=== PATIENT | male | born 2000 | race African-American/Black ===

== ENCOUNTER 2022-08-12 14:35 | Emergency (ER) | payer OTHER ==
[2022-08-12 14:40] VITALS: BP 129/76; PULSE 72; RESP 16; TEMP 98.1
--- NOTE | 2022-08-12 15:03 | ED ---
Wound/Laceration HPI - General Chief Complaint: Wound/Laceration Stated Complaint: thumb injury Time Seen by Provider: 08/12/22 14:39 Source: patient, RN notes reviewed Mode of arrival: ambulatory Limitations: no limitations - History of Present Illness Initial Comments: Patient is a 22-year-old -Turkish male presenting to the emergency room after accidentally cutting his hand on a wine bottle earlier today when he was attempting to open the bottle with a knife. He denies any range of motion impairment, numbness or tingling. He denies any concerns for foreign objects or injuries to other locations. He reports that his tetanus vaccination is up-to-date. He denies any significant past medical history and does not take any medications on a regular basis. - Related Data Allergies Allergy/AdvReac Type Severity Reaction Status Date / Time No Known Allergies Allergy Verified 08/12/22 14:37 Review of Systems ROS Statement: Those systems with pertinent positive or pertinent negative responses have been documented in the HPI. ROS Other: All systems not noted in ROS Statement are negative. Past Medical History Past Medical History: No Reported History History of Any Multi-Drug Resistant Organisms: None Reported Past Surgical History: No Surgical Hx Reported Past Psychological History: No Psychological Hx Reported Smoking Status: Never smoker Past Alcohol Use History: Occasional Past Drug Use History: None Reported General Exam Limitations: no limitations General appearance: alert, in no apparent distress Head exam: Present: atraumatic, normocephalic, normal inspection Eye exam: Present: normal appearance, PERRL, EOMI. Absent: scleral icterus, conjunctival injection, periorbital swelling ENT exam: Present: normal exam, mucous membranes moist Neck exam: Present: normal inspection, full ROM (GENERAL: []) Respiratory exam: Absent: respiratory distress, accessory muscle use Cardiovascular Exam: Present: regular rate GI/Abdominal exam: Absent: distended Right Hand Wrist exam: Present: full ROM, tenderness, laceration (between index finger and thumb dorsal aspect). Absent: swelling, deformity, crepitus, dislocation, nail avulsion Vascular: Present: normal capillary refill. Absent: vascular compromise Back exam: Present: normal inspection, full ROM Neurological exam: Present: alert, oriented X3, CN II-XII intact Psychiatric exam: Present: normal affect, normal mood Skin exam: Present: other (laceration as above) Course Vital Signs 08/12/22 14:38 Temperature 98.1 F Pulse Rate 72 Respiratory 16 Rate Blood Pressure 129/76 O2 Sat by Pulse 96 Oximetry Procedures - Laceration Laceration #1 Consent Obtained: verbal consent Indication: laceration Site: hand (right between webbing of thumb and index finger) Size (cm): 1 Description: linear Depth: simple, single layer Anesthetic Used: lidocaine 1% Anesthesia Technique: local infiltration Pre-repair: wound explored, irrigated extensively Type of Sutures: nylon Size of Sutures: 4-0 Number of Sutures: 3 Technique: simple, interrupted Patient Tolerated Procedure: well, no complications Medical Decision Making - Medical Decision Making 22-year-old -Turkish presenting with laceration to right hand. No range of motion impairment or bone injury. No concern for foreign body. No indication for diagnostic imaging or laboratory studies. No indication for antibiotic therapy or vaccinations as vaccinations up-to-date. Will proceed with laceration closure via sutures. Patient tolerated suture closure of laceration well without complications. Wound care discussed along with monitoring for signs and symptoms of infection. Questions and concerns answered. Will discharge home in stable condition with follow-up for suture removal in 7-10 days. Case discussed with Dr. Heard. Disposition Clinical Impression: Laceration Disposition: HOME SELF-CARE Condition: Stable Instructions (If sedation given, give patient instructions): Care For Your Stitches (ED), Laceration (ED) Additional Instructions: Please keep wound clean and dry. Monitor for signs and symptoms of infection and seek medical attention as appropriate if symptoms occur. Please return to the emergency room for suture removal in 7-10 days or follow-up with your primary care provider. Please return to the Emergency Department if symptoms worsen or any other concerns. Is patient prescribed a controlled substance at d/c from ED?: No Referrals: None,Stated [Primary Care Provider] - 1-2 days Time of Disposition: 15:04
[2022-08-12] MEDS ORDERED: LIDOCAINE 1% INJ 10MG/ML (30 ML VIAL-PF) SQ STA (16:01)
== END 2022-08-12 15:20 | disposition home or self-care (01) ==
LOC: EC 14:35
DX: S61.210A Laceration without foreign body of right index finger without damage to nail, initial encounter (principal); S61.011A Laceration without foreign body of right thumb without damage to nail, initial encounter; W25.XXXA Contact with sharp glass, initial encounter
CPT/HCPCS: 99282; 12001; J2001

== ENCOUNTER 2022-09-14 18:37 | Emergency (ER) | payer OTHER ==
[2022-09-14 18:59] VITALS: RESP 16; TEMP 97
[2022-09-14] MEDS ORDERED: MAG HYDROX/AL HYDROX/SIMETH 30 ML, HYOSCYAMINE ELIXIR 10 ML, LIDOCAINE VISCOUS 2% 10 ML PO STA ×3 (20:15)
[2022-09-14] MEDS ORDERED: DICYCLOMINE 20 MG TAB PO STA (20:15)
[2022-09-14] MEDS ORDERED: FAMOTIDINE 20 MG TAB PO STA (20:16)
--- NOTE | 2022-09-14 20:21 | ED ---
Abdominal Pain HPI - General Chief Complaint: Abdominal Pain Stated Complaint: Abd Pain,Diarrhea,Indigestion Time Seen by Provider: 09/14/22 20:03 Source: patient, RN notes reviewed, old records reviewed Mode of arrival: ambulatory Limitations: no limitations - History of Present Illness Initial Comments: This is a pleasant black 22-year-old male that presents to the emergency room with complaints of epigastric abdominal pain that is burning in nature for the past several months. Patient also having intermittent diarrhea and constipation. Denies any vomiting. States does not have a primary care doctor. Denies any alcohol, drug or cigarette use. Does not take any medication on a daily basis. Is a nonsmoker. MD Complaint: abdominal pain -: month(s) Location: epigastric Radiation: none Severity scale (1-10): 3 Quality: burning Consistency: intermittent Improves With: nothing Worsens With: nothing Associated Symptoms: diarrhea, constipation - Related Data Previous Rx's Medication Instructions Recorded Dicyclomine [Bentyl] 20 mg PO TID #30 tablet 09/14/22 Famotidine [Pepcid] 20 mg PO BID #28 tablet 09/14/22 Allergies Allergy/AdvReac Type Severity Reaction Status Date / Time Milk Containing Products Allergy Unknown Verified 09/14/22 21:48 [Dairy] Review of Systems ROS Statement: Those systems with pertinent positive or pertinent negative responses have been documented in the HPI. ROS Other: All systems not noted in ROS Statement are negative. Past Medical History Past Medical History: No Reported History History of Any Multi-Drug Resistant Organisms: MRSA Date of last positivie culture/infection: 2013 MDRO Source:: armpit Past Surgical History: No Surgical Hx Reported Additional Past Surgical History / Comment(s): stiches in right hand. Past Psychological History: No Psychological Hx Reported Smoking Status: Never smoker Past Alcohol Use History: None Reported Past Drug Use History: None Reported General Exam Limitations: no limitations General appearance: alert, in no apparent distress Head exam: Present: atraumatic, normocephalic, normal inspection Eye exam: Present: normal appearance. Absent: scleral icterus, conjunctival injection, periorbital swelling, periorbital tenderness ENT exam: Present: mucous membranes moist Respiratory exam: Present: normal lung sounds bilaterally. Absent: respiratory distress, accessory muscle use Cardiovascular Exam: Present: regular rate, normal heart sounds GI/Abdominal exam: Present: soft. Absent: distended, tenderness, rigid Extremities exam: Present: normal capillary refill Back exam: Present: normal inspection, full ROM. Absent: tenderness, CVA tenderness (R), CVA tenderness (L), rash noted Neurological exam: Present: alert, oriented X3 Psychiatric exam: Present: normal affect, normal mood Skin exam: Present: warm, dry, intact, normal color. Absent: rash, cyanosis, diaphoretic, petechiae, pallor Course Vital Signs 09/14/22 09/14/22 09/14/22 18:56 20:59 22:23 Temperature 97 F L Pulse Rate 88 62 78 Respiratory 16 16 16 Rate Blood Pressure 126/82 121/76 110/55 O2 Sat by Pulse 97 98 99 Oximetry Medical Decision Making - Medical Decision Making Abdomen is soft and nontender, no right lower quadrant pain, denies any t esticular pain, no fevers. Labs are unremarkable and x-ray interpreted by me shows stool in the colon, no free air. Radiologist impression large amount of stool in the right colon. Nonspecific bowel gas pattern without radiographic evidence for acute process. Patient was given Pepcid Bentyl and GI cocktail with relief. His symptoms are consistent with IBS as he has had intermittent diarrhea and constipation over the past 3 months His epigastric burning is likely related to gastritis. He was placed on Pepcid and Bentyl and directed to follow up with Dr. Rodriguez. Increase his fluid and fiber intake. He is agreeable to this plan of care. Case discussed with Dr. Narayanan. Was pt. sent in by a medical professional or institution? @ -No Did you speak to anyone other than the patient for history? @ -No Did you review nursing and triage notes? @ -Yes I agree Were old charts reviewed? @ -No Differential Diagnosis? @ -Differential Abdominal Pain Men: Appendicitis, cholecystitis, diverticulosis, ischemic bowel, pancreatitis, hepatitis, UTI, gastroenteritis, bowel obstruction, constipation, inflammatory bowel, hepatitis, peptic ulcer disease, splenic infarction, perforated viscus, testicular torsion, this is not meant to be an all-inclusive list X-rays interpreted by me (1pt min.)? @ -Yes as above CT interpreted by me (1pt min.)? @ - What testing was considered but not performed? (CT, X-rays, U/S, labs)? Why? @ CT was considered however labs are unremarkable. Abdomen is soft. No right lower quadrant pain. Constipation on x-ray with no evidence of free air. Pain was relieved with GI cocktail Pepcid and Bentyl What meds were considered but not given? Why? @ -None Did you discuss the management of the patient with other professionals? @ -No Did you reconcile home meds? @ -None Was smoking cessation discussed for >3mins.? @ -Nonsmoker Was critical care preformed (if so, how long)? @ -No Were there social determinants of health that impacted care today? How? (Homelessness, low income, unemployed, alcoholism, drug addiction, transportation, low edu. Level, literacy, decrease access to med. care, correction, rehab)? @ -Patient does not have a primary care doctor, on Medicaid Was there de-escalation of care discussed even if they declined? (Discuss DNR or withdrawal of care, Hospice)? @ -None What co-morbidities impacted this encounter? (DM, HTN, Smoking, COPD, CAD, Cancer, CVA, Hep., AIDS, mental health diagnosis, sleep apnea, morbid obesity)? @ -None Was patient admitted / discharged? @ -Discharged Undiagnosed new problem with uncertain prognosis? @ -[none] Drug Therapy requiring intensive monitoring for toxicity (Heparin, Nitro, Insulin, Cardizem)? @ -No Were any procedures done? @ -No Diagnosis/symptom? @ -Constipation, gastritis, abdominal pain consistent with IBS Acute, or Chronic, or Acute on Chronic? @ -Acute Uncomplicated (without systemic symptoms) or Complicated (systemic symptoms)? @ -Uncomplicated Side effects of treatment? @ -[none] Exacerbation, Progression, or Severe Exacerbation] @ -[no] Poses a threat to life or bodily function? @ -[no] - Lab Data Result diagrams: 09/14/22 20:41 09/14/22 20:41 Lab Results 09/14/22 09/14/22 Range/Units 20:41 20:41 WBC 6.7 (3.8-10.6) k/uL RBC 5.49 (4.30-5.90) m/uL Hgb 15.7 (13.0-17.5) gm/dL Hct 45.4 (39.0-53.0) % MCV 82.7 (80.0-100.0) fL MCH 28.6 (25.0-35.0) pg MCHC 34.5 (31.0-37.0) g/dL RDW 12.7 (11.5-15.5) % Plt Count 172 (150-450) k/uL MPV 8.2 Neutrophils % 60 % Lymphocytes % 30 % Monocytes % 6 % Eosinophils % 2 % Basophils % 1 % Neutrophils # 4.0 (1.3-7.7) k/uL Lymphocytes # 2.0 (1.0-4.8) k/uL Monocytes # 0.4 (0-1.0) k/uL Eosinophils # 0.1 (0-0.7) k/uL Basophils # 0.1 (0-0.2) k/uL Sodium 138 (137-145) mmol/L Potassium 3.6 (3.5-5.1) mmol/L Chloride 103 (98-107) mmol/L Carbon Dioxide 28 (22-30) mmol/L Anion Gap 7 mmol/L BUN 17 (9-20) mg/dL Creatinine 0.97 (0.66-1.25) mg/dL Est GFR (CKD-EPI)AfAm >90 (>60 ml/min/1.73 sqM) Est GFR (CKD-EPI)NonAf >90 (>60 ml/min/1.73 sqM) Glucose 108 H (74-99) mg/dL Calcium 9.5 (8.4-10.2) mg/dL Total Bilirubin 0.5 (0.2-1.3) mg/dL AST 33 (17-59) U/L ALT 35 (4-49) U/L Alkaline Phosphatase 100 (38-126) U/L Total Protein 7.2 (6.3-8.2) g/dL Albumin 4.8 (3.5-5.0) g/dL Amylase 69 (30-110) U/L Lipase 155 (23-300) U/L Disposition Clinical Impression: Constipation, Gastritis Disposition: HOME SELF-CARE Condition: Good Instructions (If sedation given, give patient instructions): Gastritis (ED), Constipation (ED), High Fiber Diet (ED) Additional Instructions: Increase your fluid and fiber intake. You can try Benefiber daily. Take the Pepcid as prescribed for epigastric burning. Follow-up with Dr. Rodriguez for evaluation of possible irritable bowel syndrome. Prescriptions: Dicyclomine [Bentyl] 20 mg PO TID #30 tablet Famotidine [Pepcid] 20 mg PO BID #28 tablet Is patient prescribed a controlled substance at d/c from ED?: No Referrals: None,Stated [Primary Care Provider] - 1-2 days Time of Disposition: 21:50
[2022-09-14 21:00] LABS: Basophils # (A) 0.1 k/uL (0-0.2); Basophils % (A) 1 %; Eosinophils # (A) 0.1 k/uL (0-0.7); Eosinophils % (A) 2 %; HCT 45.4 % (39.0-53.0); HGB 15.7 gm/dL (13.0-17.5); Lymphocytes % (A) 30 %; MCH 28.6 pg (25.0-35.0); MCHC 34.5 g/dL (31.0-37.0); MCV 82.7 fL (80.0-100.0); Mean Platelet Volume 8.2; Monocytes # (A) 0.4 k/uL (0-1.0); Monocytes % (A) 6 %; Neutrophils % (A) 60 %; Platelet Count 172 k/uL (150-450); RBC 5.49 m/uL (4.30-5.90); RDW 12.7 % (11.5-15.5); WBC 6.7 k/uL (3.8-10.6)
[2022-09-14 21:12] LABS: ALT 35 U/L (4-49); AST 33 U/L (17-59); African American GFR (CKD) >90 (>60 ml/min/1.73 sqM); Albumin 4.8 g/dL (3.5-5.0); Alkaline Phosphatase 100 U/L (38-126); Amylase 69 U/L (30-110); Anion Gap 7 mmol/L; Blood Urea Nitrogen 17 mg/dL (9-20); Calcium 9.5 mg/dL (8.4-10.2); Carbon Dioxide 28 mmol/L (22-30); Chloride 103 mmol/L (98-107); Glucose 108 mg/dL (74-99); Lipase 155 U/L (23-300); Non-African American GFR(CKD) >90 (>60 ml/min/1.73 sqM); Potassium 3.6 mmol/L (3.5-5.1); Sodium 138 mmol/L (137-145); Total Bilirubin 0.5 mg/dL (0.2-1.3); Total Protein 7.2 g/dL (6.3-8.2)
--- NOTE | 2022-09-14 21:43 | XR ---
EXAMINATION TYPE: XR KUB DATE OF EXAM: 09/14/2022 9:28 PM INDICATION: Patient age:Male; 22 years old; Reason for study: abd pain; COMPARISON: None. TECHNIQUE: One radiographic view of the abdomen was obtained. FINDINGS: Large amount stool in the right colon. The bowel gas pattern is nonspecific without dilated loops of small or large bowel. There is no evidence for organomegaly or pneumoperitoneum. The osseo us structures are intact. No abnormal calcifications are present. Fecal material and gas are demonst rated throughout the colon and rectum. IMPRESSION: Large amount of stool in the right colon. Otherwise a nonspecific bowel gas pattern witho ut radiographic evidence for acute process.
[2022-09-14 22:25] VITALS: BP 110/55; PULSE 78
== END 2022-09-14 22:23 | disposition home or self-care (01) ==
LOC: EC 18:37
DX: K29.70 Gastritis, unspecified, without bleeding (principal); K59.00 Constipation, unspecified; K57.90 Diverticulosis of intestine, part unspecified, without perforation or abscess without bleeding; Z91.011 Allergy to milk products
CPT/HCPCS: 36415; 74018; 80053; 82150; 83690; 85025; 99284